=== PATIENT | female | born 1970 | race Caucasian/White ===

== ENCOUNTER 2020-02-26 07:16 | Emergency (ER) | payer BC ==
--- NOTE | 2020-02-26 08:11 | EDM.PDOC ---
ED HPI GENERAL MEDICAL PROBLEM - General Chief Complaint: Abdominal Pain Stated Complaint: PAIN IN RT SIDE Time Seen by Provider: 02/26/20 07:45 Source of Information: Reports: Patient History Limitations: Reports: No Limitations - History of Present Illness INITIAL COMMENTS - FREE TEXT/NARRATIVE: This is a 49 yo female without significant medical history who presents with concerns of abdominal pain. Pain is primarily in the RUQ with radiation into the back. It started 3 days ago, patient noticed the pain upon awakening. It is constant, dull, with intermittent waves of severe pain. She has had a decreased appetite, eating does seem to make the pain worse. Some nausea but no vomiting. No diarrhea, last BM normal several days ago. No fever. No urinary symptoms. Only prior abdominal surgery was C section. No daily meds. No SOB. No LE/swelling pain. Pain is non-pleuritic. 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: Endocrine/Metabolic History: Reports: Obesity/BMI 30+ - Past Surgical History Female Surgical History: Reports: Section Social & Family History - Tobacco Use Smoking Status *Q: Never Smoker - Caffeine Use Caffeine Use: Reports: None - Alcohol Use Days Per Week of Alcohol Use: 1 Number of Drinks Per Day: 1 Total Drinks Per Week: 1 - Recreational Drug Use Recreational Drug Use: No ED ROS GENERAL - Review of Systems Review Of Systems: See Below Constitutional: Reports: No Symptoms HEENT: Reports: No Symptoms Respiratory: Reports: No Symptoms Cardiovascular: Reports: No Symptoms Endocrine: Reports: No Symptoms GI/Abdominal: Reports: Abdominal Pain, Nausea : Reports: No Symptoms Musculoskeletal: Reports: No Symptoms Skin: Reports: No Symptoms Neurological: Reports: No Symptoms Psychiatric: Reports: No Symptoms Hematologic/Lymphatic: Reports: No Symptoms Immunologic: Reports: No Symptoms ED EXAM, GI/ABD - Physical Exam Exam: See Below Exam Limited By: No Limitations General Appearance: Alert, No Apparent Distress Ears: Normal External Exam Nose: Normal Inspection Throat/Mouth: Normal Inspection Head: Atraumatic, Normocephalic Neck: Normal Inspection Respiratory/Chest: Lungs Clear Cardiovascular: Regular Rate, Rhythm GI/Abdominal Exam: Soft, Non-Tender, Other (mild right CVA tenderness) Back Exam: Normal Inspection Extremities: Normal Inspection Neurological: Alert, Oriented Psychiatric: Normal Affect, Normal Mood Skin Exam: Warm, Dry Course - Vital Signs Last Recorded V/S: Last Vital Signs Temp 37.2 C 02/26/20 07:32 Pulse 70 02/26/20 07:32 Resp 17 02/26/20 07:32 BP 166/94 H 02/26/20 07:32 Pulse Ox 95 02/26/20 07:32 - Orders/Labs/Meds Labs: Laboratory Tests 02/26/20 02/26/20 02/26/20 Range/Units 07:53 07:53 08:09 WBC 10.0 (4.5-11.0) K/uL RBC 4.39 (3.30-5.50) M/uL Hgb 13.2 (12.0-15.0) g/dL Hct 39.9 (36.0-48.0) % MCV 91 (80-98) fL MCH 30 (27-31) pg MCHC 33 (32-36) % Plt Count 353 (150-400) K/uL Sodium 141 (140-148) mmol/L Potassium 4.0 (3.6-5.2) mmol/L Chloride 105 (100-108) mmol/L Carbon Dioxide 28 (21-32) mmol/L Anion Gap 8.1 (5.0-14.0) mmol/L BUN 11 (7-18) mg/dL Creatinine 0.8 (0.6-1.0) mg/dL Est Cr Clr Drug Dosing 71.84 mL/min Estimated GFR (MDRD) > 60 (>60) Glucose 98 (74-106) mg/dL Calcium 8.8 (8.5-10.1) mg/dL Total Bilirubin 0.4 (0.2-1.0) mg/dL AST 21 (15-37) U/L ALT 29 (12-78) U/L Alkaline Phosphatase 85 (46-116) U/L Total Protein 7.5 (6.4-8.2) g/dL Albumin 3.7 (3.4-5.0) g/dL Globulin 3.8 H (2.3-3.5) g/dL Albumin/Globulin Ratio 1.0 L (1.2-2.2) Lipase 86 (73-393) U/L Urine Color Yellow (YELLOW) Urine Appearance Slightly cloudy A (CLEAR) Urine pH 5.5 (5.0-8.0) Ur Specific Ecru 1.025 (1.008-1.030) Urine Protein Negative (NEGATIVE) mg/dL Urine Glucose (UA) Negative (NEGATIVE) mg/dL Urine Ketones Negative (NEGATIVE) mg/dL Urine Occult Blood Trace-intact H (NEGATIVE) Urine Nitrite Negative (NEGATIVE) Urine Bilirubin Negative (NEGATIVE) Urine Urobilinogen 0.2 (0.2-1.0) EU/dL Ur Leukocyte Esterase Negative (NEGATIVE) Urine RBC 0-5 (0-5) Urine WBC 0-5 (0-5) Ur Epithelial Cells Few Amorphous Sediment Not seen Urine Bacteria Few Urine Mucus Few Urine HCG, Qual 02/26/20 Range/Units 08:09 WBC (4.5-11.0) K/uL RBC (3.30-5.50) M/uL Hgb (12.0-15.0) g/dL Hct (36.0-48.0) % MCV (80-98) fL MCH (27-31) pg MCHC (32-36) % Plt Count (150-400) K/uL Sodium (140-148) mmol/L Potassium (3.6-5.2) mmol/L Chloride (100-108) mmol/L Carbon Dioxide (21-32) mmol/L Anion Gap (5.0-14.0) mmol/L BUN (7-18) mg/dL Creatinine (0.6-1.0) mg/dL Est Cr Clr Drug Dosing mL/min Estimated GFR (MDRD) (>60) Glucose (74-106) mg/dL Calcium (8.5-10.1) mg/dL Total Bilirubin (0.2-1.0) mg/dL AST (15-37) U/L ALT (12-78) U/L Alkaline Phosphatase (46-116) U/L Total Protein (6.4-8.2) g/dL Albumin (3.4-5.0) g/dL Globulin (2.3-3.5) g/dL Albumin/Globulin Ratio (1.2-2.2) Lipase (73-393) U/L Urine Color (YELLOW) Urine Appearance (CLEAR) Urine pH (5.0-8.0) Ur Specific Ecru (1.008-1.030) Urine Protein (NEGATIVE) mg/dL Urine Glucose (UA) (NEGATIVE) mg/dL Urine Ketones (NEGATIVE) mg/dL Urine Occult Blood (NEGATIVE) Urine Nitrite (NEGATIVE) Urine Bilirubin (NEGATIVE) Urine Urobilinogen (0.2-1.0) EU/dL Ur Leukocyte Esterase (NEGATIVE) Urine RBC (0-5) Urine WBC (0-5) Ur Epithelial Cells Amorphous Sediment Urine Bacteria Urine Mucus Urine HCG, Qual Negative - Re-Assessments/Exams Free Text/Narrative Re-Assessment/Exam: 49 yo who presents with concerns of RUQ abdominal pain. Normal vitals and unimpressive exam. However, by history this sounds like gallbladder disease Will check abdominal labs, UA, obtain RUQ US. Pain declining pain meds at this time. 02/26/20 08:17 Free Text/Narrative Re-Assessment/Exam: Labs with some hematuria but otherwise unremarkable. US without any evidence of GB disease. Given hematuria, flank pain obtained CT for renal stone - also unremarkable. Suspect this is MSK. Safe for discharge with symptomatic cares. 02/26/20 10:04 Departure - Departure Time of Disposition: 10:08 Disposition: Home, Self-Care 01 Clinical Impression: Flank pain - Discharge Information *PRESCRIPTION DRUG MONITORING PROGRAM REVIEWED*: No *COPY OF PRESCRIPTION DRUG MONITORING REPORT IN PATIENT ANTONIO: No Instructions: Flank Pain, Adult, [id number] Referrals: Eugenio Del Rosario MD [Primary Care Provider] - Forms: ED Department Discharge Additional Instructions: We did not find a cause for your symptoms during your work up in the ED, we suspect this is musculoskeletal pain which can be treated with over the counter medication (tylenol and ibuprofen). You were discovered to have a uterine mass which is likely a fibroid, please follow up with your primary doctor for this. Sepsis Event Note (ED) - Evaluation Sepsis Screening Result: No Definite Risk - Focused Exam Vital Signs: Vital Signs Temp Pulse Resp BP Pulse Ox 02/26/20 07:32 37.2 C 70 17 166/94 H 95
--- NOTE | 2020-02-26 09:05 | US ---
Abdomen Ltd CLINICAL HISTORY: Right upper quadrant pain COMPARISON: None. TECHNIQUE: Real-time images were obtained through the right upper quadrant. FINDINGS: The liver is free of mass or biliary dilatation. There is normal hepatic echotexture.. The gallbladder shows no internal echoes or wall thickening. The common bile duct measures 3 mm. The pancreas is free of mass. The right kidney has a normal appearance. The IVC is normal. IMPRESSION: Essentially negative right upper quadrant ultrasound
--- NOTE | 2020-02-26 09:57 | CT ---
Abdomen Pelvis wo Cont CLINICAL HISTORY: Right flank pain COMPARISON: Current ultrasound. TECHNIQUE: Axial tomographic images are obtained from the dome of the diaphragm to the pubic symphysis without IV contrast enhancement. No oral contrast was used. Auto dosage reduction and iterative reconstruction techniques employed. FINDINGS: There is a small right pleural effusion and some patchy atelectasis in the right lung base. The liver shows no mass or biliary dilatation. The gallbladder has a normal appearance. The spleen has a normal size and shape. The pancreas shows no mass or inflammatory change. The adrenal glands appear normal bilaterally. The kidneys show no stones or hydronephrosis. Ureters have normal course and caliber. The bladder has a normal contour. There is a very large and lobulated uterus. With the large soft tissue mass extending to the left measuring measuring 6.3 x 6.2 x 5.3 cm. There is also ill-defined masslike focus contiguous to the right margin of the uterus. These likely represent large uterine fibroids but this should be correlated with pelvic ultrasound. The aorta has a normal contour. There is no suspicious retroperitoneal adenopathy. Abdominal pelvic fat planes and low pelvic side tracey are well demarcated. Intestinal configuration is nonacute. The appendix has a normal contour. IMPRESSION: No urinary stones or obstruction Large mass-like foci contiguous to an enlarged uterus. These likely represent multiple fibroids but should be correlated with pelvic ultrasound
== END 2020-02-26 10:35 | disposition home or self-care (01) ==
LOC: JP.ED 07:16
DX: R10.11 Right upper quadrant pain (principal); E66.9 Obesity, unspecified; Z68.33 Body mass index [BMI] 33.0-33.9, adult; Z91.030 Bee allergy status
CPT/HCPCS: 36415; 74176; 74176-26; 76705; 76705-26; 80053; 81001; 81025; 83690; 85027; 99284-25